=== PATIENT | female | born 1990 | race Two or more races ===

== ENCOUNTER 2024-07-31 21:28 | Emergency (ER) | payer SELFPAY ==
[2024-07-31 21:29] VITALS: BMI 30.7
--- NOTE | 2024-07-31 21:34 | W.PC.ACHO ---
NOT A STROKE ALERT PER PA RATSKIP.
--- NOTE | 2024-07-31 21:37 | EDNOTE_ITS ---
ED Headache RME/HPI General Chief Complaint: Headache Stated Complaint: MIGRAINE, WEAKNESS TO LEFT ARM AND FACE Time Seen by Provider: 07/31/24 21:41 Arrival date/time: 07/31/24 21:28 RME / HPI RME / HPI Narrative: This section includes all my notes and documentations, including HPI, PE, and ED course. Brent Gibbs MD HPI: 34yo female with a history of migraines presents to the ED for complaints of migraine aura, weakness and numbness to her left side of the face and left arm, and blurry vision x 30 minutes prior to arrival. Patient was nauseated, but states it has resolved. Patient has had similar symptoms in the past, but states they are more severe today. She took ibuprofen without alleviation of symptoms. No vomiting, fever, chills, chest pain or any other associated symptoms. No recent sick contacts. No tobacco, alcohol or illicit drug use. No other complaints reported. ROS: All negative except as documented in HPI. Physical Exam: General:? Alert and oriented.? Appearance of severe malaise noted. Eyes:? Conjunctivae and lids clear.? EOMI.? PERRL. ENT:? No nasal congestion.? Pharynx normal.? Tympanic membrane normal bilaterally.??? Neck:? Supple.? No carotid bruit.? No JVD.?? Heart:? RRR.? Lungs:? No respiratory distress.? Good air movement.? No rhonchi, wheezing, rales.?? Abdomen:? Soft and nontender.? Skin:? Warm and dry.?? Neuro:? Alert and oriented X 3.? Cranial Nerves II-XII grossly intact.? No peripheral motor deficits. I reviewed all diagnostic test results. My interpretation of the EKG is sinus rhythm with no ST-T changes. My interpretation of the chest x-ray is NAD. My review of the CT head report is unremarkable. My review of the CT angio head and neck report is unremarkable. Blood tests unremarkable, except K 3.3. At this point, diagnoses include stroke-like symptoms. Treatment here included NS, Toradol, Zofran, and Potassium. Significant improvement noted. I discussed the case with our teleneurologist and hospitalist. About the presentation and exam and diagnostics and treatments here. And need of further care in the hospital. Recommended admission for further care, including MRI. Patient declined admission. Discussed potential risks, including sudden . Patient understood but still declined. We couldn't change her mind. Patient signed AMA form. Discharge Instructions from Dr. Gibbs printed for you: 1. After evaluation, we (the neurologist and hospitalist doctors and myself) recommended admission for further care, including MRI imaging. To rule out serious and even fatal conditions, including stroke. 2. Unfortunately, you chose to be discharged AGAINST MEDICAL ADVICE. We couldn't change your mind. 3. See your doctor on 07/28/2024 for recheck and further care. Ask to review all test results and official radiology reports, to make sure you receive all necessary follow-ups and monitoring. 4. Seek immediate medical care if you change your mind or with any concerns. Brent Gibbs MD Related Data Previous Rx's ?Medication ?Instructions ?Recorded rizatriptan 10 mg disintegrating See Rx Instructions P O .COMPLEX 09/01/23 tablet (Maxalt-CHIEF CLINICAL DIETITIAN) #20 tabs Allergies Allergy/AdvReac Type Severity Reaction Status Date / Time latex Allergy Severe POSITIVE Verified 07/31/24 21:29 ALLERGY TEST Review of Systems Review of Systems Systems Reviewed: All systems reviewed, normal except as documented Past Medical History Past Medical History CARDIAC: Negative Congestive Heart Failure RESPIRATORY: Negative Chronic Obstructive Pulmonary Disease (COPD) GENITOURINARY: Negative Renal Disease ENDOCRINE: Negative Diabetes Mellitus Type 1 or Diabetes Mellitus Type 2 Social History SMOKING STATUS: Never smoker ED Exam Narrative Physical exam: As noted in HPI. Course Course Course Narrative: 2136: Stroke alert initiated. Quality Measures Suspected type of Stroke: Unknown at this time (ruled out) Tenecteplase given: Reason(s) TPA not given: Stroke severity too mild (non-disabling) not given stroke Orders Category Date Time Status Bedside Blood Glucose NOW Care 07/31/24 21:38 Active Refrigeration Specialist NOW Care 07/31/24 21:38 Active Continuous Pulse Oximetry NOW Care 07/31/24 21:38 Completed EKG (ED ONLY) *Do not use* NOW Care 07/31/24 21:38 Completed In and Out Catheter NEEDED Care 07/31/24 21:38 Active Insert IV NOW Care 07/31/24 21:38 Active NIH Stroke Scale now Care 07/31/24 21:38 Active NPO NOW Care 07/31/24 21:38 Active Nurse Swallow Screen x1 Care 07/31/24 21:38 Active Consult to Neurology / Tele-Neurology Routine Cons 07/31/24 21:[address] angio stroke protocol Stat Exams 07/31/24 21:[address] stroke protocol Stat Exams 07/31/24 21:38 Completed EKG (ED Only) Stat Exams 07/31/24 21:38 Draft XR chest 1V portable Stat Exams 07/31/24 21:38 Completed Alcohol, Blood Medical Stat Lab 07/31/24 21:40 Completed B-Type Natriuretic Peptide Stat Lab 07/31/24 21:40 Completed Bilirubin,Direct Stat Lab 07/31/24 21:40 Completed CBC Stat Lab 07/31/24 21:40 Completed Comprehensive Metabolic Panel Stat Lab 07/31/24 21:40 Completed Drug Screen,Urine Stat Lab 07/31/24 21:38 Ordered Free T4 (Free Thyroxine) Stat Lab 07/31/24 21:40 Completed HCG Titer if Positive Stat Lab 07/31/24 21:40 Completed Magnesium Stat Lab 07/31/24 21:40 Completed Partial Thromboplastin Time Stat Lab 07/31/24 21:40 Completed Prothrombin Time with INR Stat Lab 07/31/24 21:40 Completed TSH [Thyroid Stimulating Hormone] Stat Lab 07/31/24 21:40 Completed Troponin I Stat Lab 07/31/24 21:40 Completed Urinalysis Stat Lab 07/31/24 21:38 Ordered Urine Culture Stat Lab 07/31/24 21:38 Ordered KCL 10% Liq UDC 15 ML Med 07/31/24 22:24 Discontinued 40 meq PO X1 ONE Ketorolac Inj [Toradol Inj] Med 07/31/24 21:39 Discontinued 30 mg IVP X1 ONE Ondansetron Inj [Zofran Inj] Med 07/31/24 21:39 Discontinued 4 mg IVP X1 ONE Sodium Chloride 0.9% 1000 ml [Ns] 1,000 ml Med 07/31/24 21:39 Discontinued IV 999 mls/hr Oxygen Delivery NOW RT 07/31/24 21:38 Active Vital Signs Vital signs: Vital Signs Temperature 99.1 F 07/31/24 21:42 Pulse Rate 109 H 07/31/24 21:42 Respiratory Rate 18 07/31/24 21:42 Blood Pressure 149/81 H 07/31/24 21:42 Pulse Oximetry (%) 100 07/31/24 21:42 Oxygen Delivery Method Room Air 07/31/24 21:42 Headache MDM Narrative MDM Narrative:: 34yo female with a history of migraines presents to the ED for complaints of migraine aura, weakness and numbness to her left side of the face and left arm, and blurry vision x 30 minutes prior to arrival. Patient was nauseated, but states it has resolved. Patient has had similar symptoms in the past, but states they are more severe today. She took ibuprofen without alleviation of symptoms. No vomiting, fever, chills, chest pain or any other associated symptoms. No re cent sick contacts. No tobacco, alcohol or illicit drug use. No other complaints reported. Patient data External records reviewed:: [facility] previous records (Per chart review, patient was seen here on 09/01/23 for migraine.) Clinical information provided by:: patient Social determinants that could affect healthcare access:: none Patient has the following chronic illnesses:: none How is presenting disease/condition affected by chronic disease/condition?: no chronic disease Evaluation data The following diagnostics were reviewed and interpreted by me:: lab results, rad iology exam(s) and EKG tracing(s) (My interpretation of the EKG: NSR (82 bpm) with no ST-T changes. Brent Gibbs MD) Lab and/or radiology exams considered but not ordered:: none Interpretation Summary: I reviewed all diagnostic test results. My interpretation of the EKG is sinus rhythm with no ST-T changes. My interpretation of the chest x-ray is NAD. My review of the CT head report is unremarkable. My review of the CT angio head and neck report is unremarkable. Blood tests unremarkable, except K 3.3. Medications / Prescriptions Medications or Prescriptions considered but not ordered:: none Medication administrations:: Medication Administration History Discontinued Medications Sodium Chloride (Ns) 1,000 mls @ 999 mls/hr IV .Q1H1M ONE Stop: 07/31/24 22:39 Last Infusion: 07/31/24 23:26 Dose: Infused Documented By: Admin: 07/31/24 22:10 Dose: 999 mls/hr Documented By: SHANEL Ketorolac Tromethamine (Ketorolac Inj 30 Mg/Ml Vial) 30 mg IVP X1 ONE Stop: 07/31/24 21:40 Last Admin: 07/31/24 23:08 Dose: 30 mg Documented By: EE Ondansetron HCl (Ondansetron Inj 2 Mg/Ml Inj 2 Ml) 4 mg IVP X1 ONE; Protocol Stop: 07/31/24 21:40 Last Admin: 07/31/24 22:08 Dose: 4 mg Documented By: SHANEL Potassium Chloride (Potassium Chloride 10% 20 Meq/15 Ml Udc) 40 meq PO X1 ONE Stop: 07/31/24 22:25 Last Admin: 07/31/24 23:07 Dose: 40 meq Documented By: SHANEL NS, Toradol, Zofran, Potassium Consultations Consultation(s) initiated? (list below): Yes Consultation #1 (Physician, Specialty, Details): I discussed the case with our teleneurologist and hospitalist. About the presentation and exam and diagnostics and treatments here. And need of further care in the hospital. Recommend admission for further care, including MRI of the brain. Diagnosis Differential diagnosis headache: migraine, tension headache, subarachnoid hemorrhage, headache, meningitis, sinusitis, postconcussion syndrome and other (CVA, TIA, brain tumor) Most likely diagnosis given after review of the tests above:: Stroke-like symptoms of unclear etiology. Admission Indicated Admission indicated?: not indicated Explain why admission is indicated or not indicated:: Patient signed out AMA. Admission Request Was there a request for admission?: No Disposition Plan Disposition Plan: other (specify) (AMA) Discharge Plan Plan Patient Disposition: HOME (Self Care) Prescriptions/Referrals Prescriptions/Med Rec: No Action rizatriptan [Maxalt-CHIEF CLINICAL DIETITIAN] 10 mg tablet,disintegrating See Rx Instructions .ROUTE .COMPLEX Qty: 20 0RF Rx Instructions: take 1 tab at onset of headache; if no relief may repeat 1 tab after at least 2 hrs; max = 3 tabs/24 hr Referrals: No Primary/Family,Physician [Primary Care Provider] - In 1 week Problem List Clinical Impression: Stroke-like symptoms Patient/Caregiver Discharge Instructions Discharge Activity: activity as tolerated Education Materials: ED Stroke, Completed, ED Headache, Migraine, Classic, ED TIA: Transient Ischemic Attack Additional Instructions: Discharge Instructions from Dr. Gibbs printed for you: 1. After evaluation, we (the neurologist and hospitalist doctors and myself) recommended admission for further care, including MRI imaging. To rule out serious and even fatal conditions, including stroke. 2. Unfortunately, you chose to be discharged AGAINST MEDICAL ADVICE. We couldn't change your mind. 3. See your doctor on 07/28/2024 for recheck and further care. Ask to review all test results and official radiology reports, to make sure you receive all necessary follow-ups and monitoring. 4. Seek immediate medical care if you change your mind or with any concerns. Print Language: Venezuelan Stand Alone Forms: [employer] Award Info., Patient Portal Info Letter
--- NOTE | 2024-07-31 21:38 | XR_ITS ---
Examination: CTA carotids with intravenous contrast CTA brain, head with intravenous contrast. 2-D sagittal, coronal reconstructions. 3-D reconstructions. Exam date and time: July 31, 2024 2157 hours INDICATIONS: Stroke alert today, onset focal neurologic deficit CTDI: vol (mGy) 11.7 DLP: (mGycm) 464 Technique: Multiple CTA axial brain, head carotid images post intravenous contrast injection 75 cc, [id number]. 2-D sagittal, coronal reconstructions. 3-D reconstructions, 3-D post processing including vascular maximum intensity projection images. Low dose protocols were performed. One or more of the following dose reduction techniques were used; automated exposure control, adjustment of the mA and/or KV according to patient size, use of iterative reconstruction technique. Findings: No significant common carotid carotid bifurcation or internal carotid artery stenoses Dominant left vertebral artery with no critical stenoses Intracranial vertebral arteries and basilar artery and posterior cerebral branches fill with no occlusions Juxtasellar supraclinoid portions internal carotid arteries, middle cerebral anterior cerebral arteries show with no large vessel occlusions IMPRESSION: No significant neck arterial stenoses No cerebral large vessel vertebral occlusions or thromboses As clinically warranted, brain MRI follow-up would best assess for demyelinating disease, acute ischemic change
--- NOTE | 2024-07-31 21:38 | XR_ITS ---
Examination: AP chest single view TECHNIQUE: AP portable upright chest single view Date and time: July 31, 2024 10:10 PM Comparison December 20, 2011 INDICATIONS: Shortness of breath chest pain weakness today FINDINGS: Normal heart size Lungs are clear. Osseous structures are intact IMPRESSION: No active disease
--- NOTE | 2024-07-31 21:38 | XR_ITS ---
Examination: CT brain head without contrast. 2-D sagittal coronal reconstructions Date and time of exam:July 31, 2024 9:47 PM INDICATIONS: Stroke alert, onset left arm weakness and facial weakness today CTDI: vol (mGy):51.6 DLP: (mGycm): 1008 Technique: Multiple CT axial sections of the brain have been obtained, 5 mm slice thickness. Contrast has not been administered. 2-D sagittal, coronal reconstructions have been obtained Low dose protocols were performed. One or more of the following dose reduction techniques were used; automated exposure control, adjustment of the mA and/or KV according to patient size, use of iterative reconstruction technique. Findings: No significant ventricular enlargement. Intra-axial or extra-axial hemorrhage density is not seen. No mass effect or midline shift Basal cisterns are not remarkable. Fourth ventricle is midline. Cranial vault intact. Impression: Negative for acute hemorrhage, mass effect or midline shift
--- NOTE | 2024-07-31 21:38 | EKG_ITS ---
[facility] Test Date: 2024-07-31 Pat Name: ISAIAH PETIT Department: Room: - Gender: Female Glassie: : 1990 Requested By: Brent Dixon Order Number: [id number] Reading MD: Brent Dixon Measurements Intervals [place] Rate: 82 P: 51 NE: 164 QRS: 41 QRSD: 90 T: 39 QT: 371 QTc: 436 Interpretive Statements SINUS RHYTHM No previous ECG available for comparison /store/S0/[id number]/ecg/[id number].pdf
--- NOTE | 2024-07-31 21:40 | PC.NURSE ---
Case Consult 07/31/2024 21:39:50 [facility] Case # [id number] has been created.
[2024-07-31 21:42] VITALS: BP 149/81; PULSE 109; RESP 18; TEMP 37.3; O2SAT 100
[2024-07-31 21:49] VITALS: PULSE 110; PULSE 112; RESP 100; RESP 16
[2024-07-31 21:54] LABS: Basophils % (Auto) 1 % (0-2.5); Eosinophils # (Auto) 0.2 Thou/mm3 (0.0-0.5); Eosinophils % (Auto) 3 % (0-10); Hematocrit 31.5 % (36.0-46.0); Hemoglobin 9.9 g/dL (12.0-16.0); Immature Granulocytes % (Auto) 0 % (0-0); Immature Granulocytes Auto 0.01 Thou/mm3 (0.00-0.00); Lymphocytes # (Auto) 2.9 Thou/mm3 (1.0-4.8); Lymphocytes % (Auto) 42 % (10-50); Mean Corpuscular HGB Conc 31.4 g/dl (31.0-37.0); Mean Corpuscular Hemoglobin 23.6 pg (25.0-35.0); Mean Corpuscular Volume 75 fL (80-100); Monocytes # (Auto) 0.5 Thou/mm3 (0.0-0.8); Monocytes % (Auto) 7 % (0-12); Neutrophils # (Auto) 3.4 Thou/mm3 (1.8-7.7); Neutrophils % (Auto) 48 % (37-80); Nucleated Red Blood Cell % 0 /100 WBC (0); Platelet Count 368 Thou/mm3 (140-440); RDW Standard Deviation 46.1 fL (36.4-46.3); Red Blood Count 4.19 Miln/mm3 (4.00-5.20)
--- NOTE | 2024-07-31 22:00 | PC.NURSE ---
TELE NEURO (DR FLORES) ON SCREEN SPEAKING TO PT AND ASSESSING PT. PT TOLERATING WITH ANY ISSUES. NAD.
[2024-07-31 22:08] LABS: HCG Titer if Positive Negative; Partial Thromboplastin Time 29.4 Seconds (22.0-36.0)
[2024-07-31] MEDS: ONDANSETRON INJ 2 MG/ML INJ 2 ML 4 MG IVP (22:08)
[2024-07-31] MEDS: SODIUM CHLORIDE 0.9% 1000 ML 1,000 ML 999 ML IV (22:10)
[2024-07-31 22:17] LABS: Alanine Aminotransferase 15 U/L (10-49); Albumin, Serum 4.4 gm/dL (3.5-5.0); Albumin/Globulin Ratio 1.5 (1.2-2.2); Alcohol, Blood Medical < 3.0 mg/dL (0-10.0); Alkaline Phosphatase 113 U/L (46-116); Anion Gap 10 (7-16); Aspartate Amino Transferase 17 U/L (0-34); B-Type Natriuretic Peptide < 20 pg/mL (0-100); BUN/Creatinine Ratio 14 Ratio (12-20); Bilirubin,Direct < 0.1 mg/dL (0.0-0.3); Bilirubin,Total 0.3 mg/dL (0.3-1.2); Blood Urea Nitrogen 10 mg/dL (9-23); Calcium 9.1 mg/dL (8.3-10.6); Calcium (Corrected) 9.1 mg/dL (8.5-10.1); Carbon Dioxide 22.4 mMol/L (20.0-31.0); Chloride 104 mMol/L (98-107); Creatinine (Component) 0.7 mg/dL (0.6-1.3); Estimated Creatinine Clearance 127.2 mL/min (>60); Free T4 (Free Thyroxine) 1.03 ng/dL (0.89-1.76); Glucose 106 mg/dL (74-106); Magnesium 1.8 mg/dL (1.6-2.6); Osmolality,Calculated 270 (275-295); Potassium 3.3 mMol/L (3.4-5.1); Sodium 136 mMol/L (136-145); Thyroid Stimulating Hormone 3.78 uIU/mL (0.55-4.78); Total Protein 7.4 gm/dL (5.7-8.2); Troponin I < 0.002 ng/mL (0.0-0.045); eGFR > 60 See Note
--- NOTE | 2024-07-31 22:36 | PD.TNEURO ---
Tele Neuro Consultation Consultation Date 07/31/24 Most Recent Vital Signs Last Vital Signs Temp 99.1 F 07/31/24 21:42 Pulse 110 H 07/31/24 21:49 Resp 16 07/31/24 21:49 BP 149/81 H 07/31/24 21:42 Pulse Ox 100 07/31/24 21:42 O2 Del Method Room Air 07/31/24 21:42 Laboratory-Coagulation Panel PT 11.0 Seconds (9.0-12.2) 07/31/24 21:40 INR 1.0 (0.9-1.3) 07/31/24 21:40 APTT 29.4 Seconds (22.0-36.0) 07/31/24 21:40 Consultation Narrative [facility] Tele[facility]urology Consult Services Patient Name:???Sasha Foley Date of :???1990 Identification Number:??? Date of Service:???07/31/2024 21:39:50 Diagnosis:?G43.819 - Other migraine, intractable, without status migrainosus Impression: ?34 year old lady with pmh significant for migraine headaches presenting with episode of numbness and vision changes. She says the numbness has now resolved but still having some visual field issues out of the left eye/lateral visual field. She does not have a migraine yet. She says this is similar to her prior migraines but more severe symptoms. ?head CT was negative ?CTA h/n pending ? ?Pt was not given iv thrombolytic because stroke was lower on differential and deficits were improving and mild. ? ?Differential: ?most likely migraine with aura ?stroke/tia/cerebral venous sinus thrombosis other considerations but felt less likely. Our recommendations are outlined below. Recommendations: ? Stroke/Telemetry Floor ? Neuro Checks (Q2) ? Bedside Swallow Eval ? DVT Prophylaxis ? IV Fluids, Normal Saline ? Head of Bed 30 Degrees ? Euglycemia and Avoid Hyperthermia (PRN Acetaminophen) ? Initiate or continue Aspirin 81 MG daily ? Antihypertensives PRN if Blood pressure is greater than 220/120 or there is a concern for End organ damage/contraindications for permissive HTN. If blood pressure is greater than 220/120 give labetalol PO or IV or Vasotec IV with a goal of 15% reduction in BP during the first 24 hours. ?-MRI brain ?-treat with migraine cocktail: iv fluids, toradol, benadryl, zofran ?-f/u with outpatient neuro Sign Out: ? Discussed with Emergency Department Provider Advanced Imaging:Advanced imaging has been ordered. Results pending. Metrics: Last Known Well: 07/31/2024 21:00:00 Dispatch Time: 07/31/2024 21:39:50 Arrival Time: 07/31/2024 21:28:00 Initial Response Time: 07/31/2024 21:43:00Symptoms: tingling left side. Initial patient interaction: 07/31/2024 21:45:05 NIHSS Assessment Completed: 07/31/2024 22:08:16Patient is not a candidate for Thrombolytic. Thrombolytic Medical Decision: 07/31/2024 22:08:17Patient was not deemed candidate for Thrombolytic because of following reasons: other diagnosis suspected higher suspicion for migraine. CT Head: I personally reviewed all the CT images that were available to me and it showed: no acute abnormality Primary Provider Notified of Diagnostic Impression and Management Plan on: 07/31/2024 22:20:01 History of Present Illness:Patient is a 34 year old Female. Patient was brought by private transportation with symptoms of tingling left side. 34 year old lady with hx of migraines presenting tonight with tingling to left arm/face and flashing lights This started about 30 minutes before arrival. Today, she says it is more severe than her usual migraines. Headache has not started yet. Symptoms started around 9 pm. She has a migraine about once every 3 months. She has had unilateral symptoms in past with her migraines. She takes NSAIDs only for her migraines. in ED, she says that the numbness has resolved but vision in left eye is still decreased. ? Past Medical History: ?Migraine Headaches ?There is no history of Hypertension ?There is no history of Diabetes Mellitus ?There is no history of Hyperlipidemia ?There is no history of Atrial Fibrillation ?There is no history of Coronary Artery Disease ?There is no history of Stroke ?There is no history of Seizures Medications: No Anticoagulant use? No Antiplatelet use Reviewed EMR for current medications Other Medications Pertinent To Assessment Include: NSAIDs Allergies:? Reviewed Description:?latex Social History: Patient Is: Smoking: No Alcohol Use: No Drug Use: No Family History: There Is Family History Of:no FH of migraines or strokes There is no family history of premature cerebrovascular disease pertinent to this consultation ROS : 14 Points Review of Systems was performed and was negative except mentioned in HPI. Past Surgical History: There Is No Surgical History Contributory To Today?s Visit There Is Surgical History of:? none ? Examination: BP(140/80),?Pulse(103),?Blood Glucose(93) 1A: Level of Consciousness - Alert; keenly responsive?+ 0 1B: Ask Month and Age - Both Questions Right?+ 0 1C: Blink Eyes & Squeeze Hands - Performs Both Tasks?+ 0 2: Test Horizontal Extraocular Movements - Normal?+ 0 3: Test Visual Ashraf - Partial Hemianopia?+ 1 4: Test Facial Palsy (Use Grimace if Obtunded) - Normal symmetry?+ 0 5A: Test Left Arm Motor Drift - No Drift for 10 Seconds?+ 0 5B: Test Right Arm Motor Drift - No Drift for 10 Seconds?+ 0 6A: Test Left Leg Motor Drift - No Drift for 5 Seconds?+ 0 6B: Test Right Leg Motor Drift - No Drift for 5 Seconds?+ 0 7: Test Limb Ataxia (FNF/Heel-Bingham) - No Ataxia?+ 0 8: Test Sensation - Normal; No sensory loss?+ 0 9: Test Language/Aphasia - Normal; No aphasia?+ 0 10: Test Dysarthria - Normal?+ 0 11: Test Extinction/Inattention - No abnormality?+ 0 NIHSS Score:?1 Pre-Morbid Modified [place] Scale:0 Points = No symptoms at all Spoke with :?dr. Gibbs This consult was conducted in real time using interactive audio and video technology. Patient was informed of the technology being used for this visit and agreed to proceed. Patient located in hospital and provider located at home/office setting. Patient is being evaluated for possible acute neurologic impairment and high probability of imminent or life-threatening deterioration. I spent total of 55 minutes providing care to this patient, including time for face to face visit via telemedicine, review of medical records, imaging studies and discussion of findings with providers, the patient and/or family. Dr Libby Guardado [facility] For Inpatient follow-up with [facility] physician please call [facility] at . As we are not an outpatient service for any post hospital discharge needs please contact the hospital for assistance. If you have any questions for the [facility] physicians or need to reconsult for clinical or diagnostic changes please contact us via [facility] at .
[2024-07-31] MEDS: POTASSIUM CHLORIDE 10% 20 MEQ/15 ML UDC 40 MEQ PO (23:07)
[2024-07-31] MEDS: KETOROLAC INJ 30 MG/ML VIAL IVP (23:08)
[2024-07-31 23:21] LABS: Collection Type, Urine Clean Catch
--- NOTE | 2024-07-31 23:29 | PD.RESEVENT ---
Documentation for date of: 07/31/24 Event Note Event Note: We were called for admission of 34-year-old female with history of migraines with aura who came in due to visual changes and numbness in her face and left arm that started today. ED called stroke alert and teleneurology saw the patient who stated that most likely was migraines with aura and less likely to be stroke versus TIA versus cerebral venous thrombosis. Patient did not get tenecteplase as her NIHSS was 1. On assessment patient stated that she has been having migraines with similar symptoms of aura in the past when she was a teenager, but she has not been taking any medications for this other than NSAIDs. Physical exam did not show any focal neurological deficits. Patient does not smoke, does not take oral contraceptives, and does not have a history of blood clots in the family. After discussion with patient about the necessity to get an MRI and patient to be admitted to the hospital patient stated she would like to discuss with her was at bedside before making a decision if she wants to be admitted or not. All risk and benefits were discussed with the patient about possibility of still having a stroke as MRI would let us know if patient is having an acute event at this time. Patient stated she will let the ED physician know on her decision. General: A/O x3, no acute distress Eyes: PERRL, EOMI. Anicteric, vision grossly intact. Ears: No ear pain, no ear discharge, Hearing grossly intact. Nose: No nasal discharge. Mouth/Throat: Moist mucous membranes, no redness, no lesions. Neck: Neck supple, non-tender, no cervical lymphadenopathy. Lungs: Clear EMMA to auscultation and percussion, No accessory muscle use. Cardio: Normal S1/S2, regular rhythm, no murmurs, no JVD or carotid bruits. Abdomen: Soft, non-tender, no palpable masses, peristalsis present, no guarding or rebound. Extremities: Symmetrical, no significant deformities, no peripheral edema , non-tender, peripheral pulses presents. Skin: No rashes, no lesions, warm to touch. Neuro: No focal neurological deficits.No dysmetria, No nasal fold flattening, No sensory deficits. Motor intact. NIHSS 0 on my assessment. Psych: Cooperative, appropriate mood and effect. Case disclosed with Attending Dr. Kory Santa PGY1 Disclaimer: Even though this this note was dictated by speech recognition and even though it was carefully revised there may still be minor errors in railroad car checker due to voice recognition software.
[2024-07-31 23:37] LABS: Bilirubin,Urine Negative (Negative); Blood,Urine Negative (Negative); Clarity,Urine Clear (Clear/Hazy); Color,Urine Colorless (Lt Yel-Yel); Glucose, Urine Negative (Negative); Ketones,Urine Negative (Negative); Leukocyte Esterase,Urine Negative (Negative); Nitrite,Urine Negative (Negative); PH,Urine 6.5 (5.0-7.0); Protein,Urine Negative (Neg - Trace); RBC,Urine 1 /hpf (0-3); Specific Gravity,Urine 1.005 (1.001-1.035); Squamous Epithelial Cell,Urine 2 /hpf (0-5); Urobilinogen,Urine Negative mg/dL (0.0-1.0); WBC,Urine 1 /hpf (0-5)
[2024-07-31 23:45] VITALS: BP 115/77; PULSE 78; RESP 16
[2024-07-31 23:46] LABS: Amphetamine/Methamp Scrn,U Negative (Negative); Barbiturate Screen,Urine Negative (Negative); Benzodiazepines Screen,Urine Negative (Negative); Benzoylecgonine Screen, Ur Negative (Negative); Fentanyl Screen,Urine Negative (Negative); Opiate Screen,Urine Negative (Negative); THC Screen,Urine Negative (Negative)
== END 2024-07-31 23:46 | disposition home or self-care (01) ==
PROVIDERS: Emergency Provider Emergency Medicine
DX: R29.818 Other symptoms and signs involving the nervous system (principal); R53.1 Weakness; R29.810 Facial weakness; R06.02 Shortness of breath; R07.9 Chest pain, unspecified
CPT/HCPCS: 36415; 70450; 70496; 70498; 71045; 80053; 80307; 80320; 81001; 82248; 83735; 83880; 84439; 84443; 84484; 84703; 85025; 85610; 85730; 87086; 93005; 96361; 96374; 96375; 99284; A4649; J1885; J2405; J7030; Q9967; A9270; G0480